=== PATIENT | female | born 1935 | race Caucasian/White ===

== ENCOUNTER 2017-03-01 08:45 | Emergency (ER) | payer MEDICARE ==
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
[2017-03-01 10:37] VITALS: BP 177/77
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
== END 2017-03-01 10:36 | disposition home or self-care (01) ==
LOC: ED 08:45
DX: M25.512 Pain in left shoulder (principal); V89.2XXA Person injured in unspecified motor-vehicle accident, traffic, initial encounter; Y93.9 Activity, unspecified; Y92.9 Unspecified place or not applicable; Y99.9 Unspecified external cause status
CPT/HCPCS: 71020; 93005; 99282